=== PATIENT | male | born 1970 | race Caucasian/White ===

== ENCOUNTER → 2017-08-10 | Outpatient (CLI) | payer MEDICARE, MEDICAID ==
[~2017-08-10] MED LIST: BACTRIM DS 8001 TA1 PO; IBUPROFEN800 MG PO
[2017-08-10 18:54] LABS: AMPHETAMINES/METAMPHETAMINES NEGATIVE ng/mL (<1000)
== END ==
LOC: LAB 16:23
PROVIDERS: Nurse Practitioner Family
DX: Z79.899 Other long term (current) drug therapy (principal)

== ENCOUNTER 2017-09-02 17:52 | Emergency (ER) | payer MEDICARE, MEDICAID ==
[~2017-09-02] VITALS: Ht 188 cm; Wt 149.7 kg
--- OUTSIDE RECORDS SUMMARY | 2017-09-02 18:39 | External Medical Summary Rpt | CCD ---
Author Author , BERNABE KIDD Address Unknown Phone [email or web address] Care Team Providers Care Diving Supervisor Name Role Phone NARCISO STUART Unavailable Unavailable [facility] Unavailable Unavailable INC, [facility] RENUSCH, RENUSCH Unavailable Unavailable Purpose Continuity of Care Document - 05-06-2017 through 2016 Problems Code Diagnosis DOS Provider Status L0231 CUTANEOUS 05-15-2017 [facility] INC L0291 CUTANEOUS 05-06-2017 [facility] ABSCESS [facility] UNSPECIFIED INC Procedures Procedure DOS Code Location Performer Comment HOSPITAL G0463 MAR[facility] ALICIA OUTPATIEN 7 [facility] T CLIN INC INC VISIT ASSESS & MGMT PT HOSPITAL G0463 MAR[facility] ALICIA OUTPATIEN 7 [facility] INC INC VISIT ASSESS & MGMT PT HOSPITAL G0463 MARAL ALICIA OUTPATIEN 7 [facility] T CLIN INC INC VISIT ASSESS & MGMT PT CUL BACT 04767 MARAL ALICIA XCPT 7 [facility] URINE INC INC BLOOD/STO OL AEROBIC ISOL CUL BACT 21121 MARAL ALICIA AEROBIC 7 [facility] ADDL INC INC METHS DEFINITIV E EA ISOL INCISION 01592 MARAL MARAL & 7 [facility] DRAINAGE INC INC ABSCESS SIMPLE/SI NGLE INCISION 05529 MARTIR RENUSCH & 7 [facility] ABSCESS COMPLICAT ED/MULTIP LE SUSCEPTIB 12191 MARAL MARAL LTY STDY 7 [facility] ANTIMICRB INC INC IAL MICRO/AGA R DILUTJ BLOOD 03565 MARAL MARAL COUNT 7 [facility] COMPLETE INC INC AUTO&AUTO DIFRNTL WBC Encounters Encounter Start End Date Code Location Performer Type Date HOSPITAL [facility] - 7 7 [facility] OUTPATIEN INC T OFFICE [address]843 [facility] PHYS[facility] T VISIT GROUP 15 MINUTES [facility] MARAL - 7 7 [facility] 7 7 [facility] [address] MARTIR GILES 7 7 PHYSICIAN MICHAEL S, [facility] T VISIT HIGH/URGE NT SEVERITY [facility] MARAL - 7 7 [facility] DONAHUE 7 7 [facility] INC
--- OUTSIDE RECORDS SUMMARY | 2017-09-02 18:39 | External Medical Summary Rpt ---
Author Author BERNABE Sarabia, BERNABE [employer] Organization [employer] Address Unknown Phone Unavailable Results Drugs identified in Urine by Screen method Observa Value Referen Units Interpr Notes Date tion ce etation Range Positive urine drug screen samples are stored for 7 days. Contact the Lab if confirmation of positives is needed. Ampheta NEGATIV <1000 ng/mL No No Sep mine E informa informa 2017 [Presen tion in tion in 1:35 PM ce] in source source Urine data data by Screen method Barbitura <200 ng/mL No No Aug 10 vika informati informati 2017 1:35 [Mass/vol on in on in PM ume] in source source Urine by data data Screen method Benzodiaz 200 ng/mL ng/mL No No Aug 10 epines informati informati 2017 1:35 [Mass/vol on in on in PM ume] in source source Serum or data data Plasma by Screen method Cocaine <300 ng/g No No Sep [Mass/vol informati informati 2017 1:35 ume] in on in on in PM Unspecifi source source ed data data specimen Methadone <300 ng/mL No No Sep informati informati 2017 1:35 [Mass/vol on in on in PM ume] in source source Unspecifi data data ed specimen Opiates <300 ng/mL No No Sep [Mass/vol informati informati 2017 1:35 ume] in on in on in PM Unspecifi source source ed data data specimen Phencycli <25 ng/mL No No Sep 26 dine informati informati 2017 1:35 [Mass/vol on in on in PM ume] in source source Unspecifi data data ed specimen 11-Hydr NEGATIV <50 ng/mL No No Sep 26 oxy E informa informa 2017 delta-9 tion in tion in 1:35 PM source source tetrahy data data drocann abinol [Presen ce] in Unspeci fied specime n CBC W Auto Differential panel in Blood Observa Value Referen Units Interpr Notes Date tion ce etation Range Basophils 0 - 0.2 K/MM3 Normal No May 06 informati 2016 2:40 [#/volume on in PM ] in source Blood by data Automated count Basophils 0.1 - 2.0 % Normal No May 06 /100 informati 2016 2:40 leukocyte on in PM s in source Blood by data Automated count Eosinophi 0.0 - 0.4 K/mm3 Normal No May 06 ls informati 2016 2:40 [#/volume on in PM ] in source Blood by data Automated count Eosinophi 0.1 - % Normal No May 06 ls/100 12.0 informati 2016 2:40 leukocyte on in PM s in source Blood by data Automated count Granulocy 1.3 - 8.0 K/mm3 Normal No May 06 vika informati 2016 2:40 [#/volume on in PM ] in source Blood by data Automated count Granulocy 37.0 - % Normal No May 06 vika/100 80.0 informati 2016 2:40 leukocyte on in PM s in source Blood by data Automated count Hematocri 42.0 - % Normal No May 06 t [Volume 52.0 informati 2016 2:40 on in PM Fraction] source of Blood data Hemoglobi 14.1 - g/dL Normal No May 06 n 18.0 informati 2016 2:40 [Mass/vol on in PM ume] in source Blood data Lymphocyt 0.7 - 4.5 K/mm3 Normal No May 06 es informati 2016 2:40 [#/volume on in PM ] in source Unspecifi data ed specimen by Automated count Lymphocyt 10 - 50 % Normal No May 06 es informati 2016 2:40 [#/volume on in PM ] in source Unspecifi data ed specimen by Automated count Erythrocy 27 - 31.2 pg Normal No May 06 te mean informati 2016 2:40 corpuscul on in PM ar source hemoglobi data n [Entitic mass] Erythrocy 31.8 - g/dl Normal No May 06 te mean 35.4 informati 2016 2:40 corpuscul on in PM ar source hemoglobi data n concentra tion [Mass/vol ume] by Automated count Erythrocy 82.2 - fl Normal No May 06 te mean 97.8 informati 2016 2:40 corpuscul on in PM ar volume source [Entitic data volume] by Automated count Monocytes 0.1 - 1.0 K/mm3 Normal No May 06 informati 2016 2:40 [#/volume on in PM ] in source Blood by data Automated count Monocytes 1.7 - 9.3 % Normal No Apr 22 /100 informati 2016 2:40 leukocyte on in PM s in source Blood by data Automated count Platelet 7.4 - fl Normal No May 06 mean 10.4 informati 2016 2:40 volume on in PM [Entitic source volume] data in Blood by Automated count Platelets 142 - 424 K/mm3 Normal No May 06 informati 2016 2:40 [#/volume on in PM ] in source Blood data Erythrocy 4.6 - 6.2 M/mm3 Normal No May 06 vika informati 2016 2:40 [#/volume on in PM ] in source Amniotic data fluid Erythrocy 11.5 - % Normal No May 06 te 17.5 informati 2016 2:40 distribut on in PM ion width source [Entitic data volume] by Automated count Leukocyte 4.8 - K/MM3 Normal No May 06 s 10.8 informati 2016 2:40 [#/volume on in PM ] in source Blood data Comprehensive metabolic 2000 panel in Serum or Plasma Observa Value Referen Units Interpr Notes Date tion ce etation Range Albumin/G 1.1 - 1.8 No Low No May 03 lobulin informati informati 2016 2:54 [Mass on in on in PM ratio] in source source Serum or data data Plasma Albumin 3.4 - 5.0 gm/dL Normal No May 03 [Mass/vol informati 2016 2:54 ume] in on in PM Serum or source Plasma data Alkaline 46 - 116 U/L Normal No May 03 phosphata informati 2016 2:54 se on in PM [Enzymati source c data activity/ volume] in Serum or Plasma Bilirubin 0.2 - 1.0 mg/dL Normal No May 03 .total informati 2016 2:54 [Mass/vol on in PM ume] in source Serum or data Plasma Urea 7 - 18 mg/dL Normal No May 03 nitrogen informati 2016 2:54 [Mass/vol on in PM ume] in source Serum or data Plasma Calcium 8.5 - mg/dL Normal No May 03 [Mass/vol 10.1 informati 2016 2:54 ume] in on in PM Serum or source Plasma data Chloride 98 - 107 mmoL/L Normal No May 03 [Moles/vo informati 2016 2:54 lume] in on in PM Serum or source Plasma data Carbon 21.0 - mmoL/L Normal No May 03 dioxide, 32.0 informati 2016 2:54 total on in PM [Moles/vo source lume] in data Serum or Plasma Creatinin 0.70 - mg/dL Low No May 03 e 1.30 informati 2016 2:54 [Mass/vol on in PM ume] in source Serum or data Plasma Estimated >60 ML/MIN No REFERENCE May 03 informati RANGE: 2017 2:54 glomerula on in >60 PM r source ML/MIN/1. filtratio data 73 SQUARE n rate METERSIf (GF this patient is -A merican, then multiply theresult by 1.210. Globulin 1.3 - 3.2 gm/dL High No May 03 [Mass/vol informati 2016 2:54 ume] in on in PM Serum source data Glucose 74 - 106 mg/dL High No May 03 [Mass/vol informati 2016 2:54 ume] in on in PM Serum or source Plasma data Potassium 3.5 - 5.1 mmoL/L Normal No May 03 inform2016 2:54 [Moles/vo on in PM lume] in source Serum or data Plasma Sodium 136 - 145 mmoL/L Normal No May 03 [Moles/vo informati 2016 2:54 lume] in on in PM Serum or source Plasma data Aspartate 15 - 37 U/L Normal No May 03 inform2016 2:54 aminotran on in PM sferase source [Enzymati data c activity/ volume] in Serum or Plasma Alanine 12 - 78 U/L Normal No May 03 aminotran informati 2016 2:54 sferase on in PM [Enzymati source c data activity/ volume] in Serum or Plasma Protein 6.4 - 8.2 gm/dL Normal No May 03 [Mass/vol informati 2016 2:54 ume] in on in PM Serum or source Plasma data Thyroxine (T4) free [Mass/volume] in Serum or Plasma Observa Value Referen Units Interpr Notes Date tion ce etation Range Thyroxine 0.76 - ng/dL Normal No May 03 (T4) 1.46 informati 2016 2:54 free on in PM [Mass/vol source ume] in data Serum or Plasma Lipid 1996 panel in Serum or Plasma Observa Value Referen Units Interpr Notes Date tion ce etation Range Cholester < 200 mg/dL High No May 03 ol inform2016 2:54 [Moles/vo on in PM lume] in source Unspecifi data ed specimen Cholester 40 - 60 MG/DL Low No May 03 ol in HDL 2016 2:54 on in PM [Mass/vol source ume] in data Serum or Plasma Triglycer 30 - 200 mg/dL High IF May 03 lamont TRIGLYCER 2016 2:54 [Moles/vo LAMONT VALUE PM lume] in EXCEEDS Serum or 400 Plasma MG/DL,THE VLDL/LDL VALUES HAVE NO CLINICAL SIGNIFICA NCE.THE CALCULATI ONS ARE ACCURATE FOR SPECIMENS INWHICH THE TRIGLYCER LAMONT CONCENTRA TION IS NO MORETHAN 400 MG/DL AND WHICH ARE NOT FROM PERSONS WHOHAVE TYPE III HYPERLIPO PROTEINEM IA. Thyrotropin [Units/volume] in Serum or Plasma Observa Value Referen Units Interpr Notes Date tion ce etation Range Thyrotrop 0.358 - uIU/ml Normal No May 03 in 3.740 2016 2:54 [Units/vo on in PM lume] in source Serum or data Plasma Hemoglobin A1c in Blood Observa Value Referen Units Interpr Notes Date tion ce etation Range Hemoglo 10.4 0.0 - % High < 6% May 03 bin A1c 7.0 NON-CHAENL 2017 in BETIC 2:54 PM Blood LEVEL< 7% CONTROL LED DIABETI C LEVEL> 8% POORLY CONTROL LED DIABETI C LEVEL CBC W Auto Differential panel in Blood Observa Value Referen Units Interpr Notes ti ce etation Range Basophils 0 - 0.2 K/MM3 Normal No May 032016 2:54 [#/volume on in PM ] in source Blood by data Automated count Basophils 0.1 - 2.0 % Normal No May 03 /100 inform2016 2:54 leukocyte on in PM s in source Blood by data Automated count Eosinophi 0.0 - 0.4 K/mm3 Normal No May 03 ls 2016 2:54 [#/volume on in PM ] in source Blood by data Automated count Eosinophi 0.1 - % Normal No May 03 ls/100 12.0 2016 2:54 leukocyte on in PM s in source Blood by data Automated count Granulocy 1.3 - 8.0 K/mm3 Normal No May 03 vika informati 2017 2:54 [#/volume on in PM ] in source Blood by data Automated count Granulocy 37.0 - % Normal No May 03 vika/100 80.0 informati 2017 2:54 leukocyte on in PM s in source Blood by data Automated count Hematocri 42.0 - % Normal No May 03 t [Volume 52.0 informati 2017 2:54 on in PM Fraction] source of Blood data Hemoglobi 14.1 - g/dL Normal No May 03 n 18.0 informati 2017 2:54 [Mass/vol on in PM ume] in source Blood data Lymphocyt 0.7 - 4.5 K/mm3 Normal No May 03 es informati 2017 2:54 [#/volume on in PM ] in source Unspecifi data ed specimen by Automated count Lymphocyt 10 - 50 % Normal No May 03 es informati 2016 2:54 [#/volume on in PM ] in source Unspecifi data ed specimen by Automated count Erythrocy 27 - 31.2 pg Normal No May 03 te mean informati 2016 2:54 corpuscul on in PM ar source hemoglobi data n [Entitic mass] Erythrocy 31.8 - g/dl Normal No May 03 te mean 35.4 informati 2017 2:54 corpuscul on in PM ar source hemoglobi data n concentra tion [Mass/vol ume] by Automated count Erythrocy 82.2 - fl Normal No May 03 te mean 97.8 informati 2016 2:54 corpuscul on in PM ar volume source [Entitic data volume] by Automated count Monocytes 0.1 - 1.0 K/mm3 Normal No May 03 informati 2017 2:54 [#/volume on in PM ] in source Blood by data Automated count Monocytes 1.7 - 9.3 % Normal No May 03 /100 informati 2017 2:54 leukocyte on in PM s in source Blood by data Automated count Platelet 7.4 - fl Low No May 03 mean 10.4 informati 2017 2:54 volume on in PM [Entitic source volume] data in Blood by Automated count Platelets 142 - 424 K/mm3 Normal No May 03 informati 2017 2:54 [#/volume on in PM ] in source Blood data Erythrocy 4.6 - 6.2 M/mm3 Normal No May 03 vika informati 2017 2:54 [#/volume on in PM ] in source Amniotic data fluid Erythrocy 11.5 - % Normal No May 03 te 17.5 informati 2017 2:54 distribut on in PM ion width source [Entitic data volume] by Automated count Leukocyte 4.8 - K/MM3 Normal No May 03 s 10.8 informati 2016 2:54 [#/volume on in PM ] in source Blood data
--- OUTSIDE RECORDS SUMMARY | 2017-09-02 18:39 | External Medical Summary Rpt ---
Author Author BERNABE Sarabia, BERNABE [employer] Organization [employer] Address Unknown Phone Unavailable [...] < 6% May 03 bin A1c 7.0 NON-CHANEL 2017 in BETIC 2:54 PM Blood LEVEL< [...]
--- OUTSIDE RECORDS SUMMARY | 2017-09-02 18:39 | External Medical Summary Rpt | CCD ---
Author Author , BERNABE KIDD Address Unknown Phone [email or web address] Care Team Providers Care Surg Nurse Name Role Phone LEONARDOCAITLYN NARCISO Unavailable Unavailable [facility] RENUSCH, RENUSCH Unavailable Unavailable Purpose Continuity of Care Document - 05-03-2017 through 2016 Problems Code Diagnosis DOS Provider Status E11.65 TYPE 2 07-09-2017 DIABETES MELLITUS WITH HYPERGLYCEM IA F33.9 MAJOR 07-09-2017 DEPRESSIVE DISORDER, RECURRENT, UNSPECIFIED Z87.891 PERSONAL 07-09-2017 HISTORY OF NICOTINE DEPENDENCE L0231 CUTANEOUS 05-15-2017 [facility] L0291 CUTANEOUS 05-06-2017 [facility] UNSPECIFIED INC D64.9 ANEMIA, UNSPECIFIED E11.9 TYPE 2 DIABETES MELLITUS WITHOUT COMPLICATIO NS F41.9 ANXIETY DISORDER, UNSPECIFIED L02.91 CUTANEOUS ABSCESS, UNSPECIFIED Z79.899 OTHER DIRECTOR LEARNING SERVICES (CURRENT) DRUG THERAPY Results Labs Lab Lab Date Result Refere Interp Status Commen Order Detail nces retati t Range on Drugs identified in Urine by Screen method (08-10-2017 13:35) Ampheta NEGATIV <1000 complet mine 017 E ed [Presen 13:35 ce] in Urine by Screen method 11-Hydr NEGATIV <50 complet oxy 017 E ed delta-9 13:35 tetrahy drocann abinol [Presen ce] in Unspeci fied specime n Hemoglobin A1c in Blood (05-03-2017 14:54) Hemoglo 10.4 % 0.0% High complet bin A1c 017 - ed in 14:54 7.0% Blood Procedures Procedure DOS Code Location Performer Comment HOSPITAL G0463 [facility] INC INC VISIT ASSESS & MGMT PT HOSPITAL G0463 [facility] [place] OUTPATIEN 7 [facility] CLIN INC INC VISIT ASSESS & MGMT PT HOSPITAL G0463 MARAL ALICIA OUTPATIEN 7 [facility] CL[facility] INC INC VISIT ASSESS & MGMT PT INCISION 74447 MARAL ALICIA & 7 [facility] DRAINAGE INC INC ABSCESS SIMPLE/SI NGLE INCISION 32690 MARTIR RENUSCH & 7 [facility] ABSCESS COMPLICAT ED/MULTIP LE SUSCEPTIB 21913 AMRAL ALICIA LTY STDY 7 [facility] ANTIMICRB INC INC IAL MICRO/AGA R DILUTJ CUL BACT 14752 MARAL ALICIA XCPT 7 [facility] URINE INC INC BLOOD/STO OL AEROBIC ISOL CUL BACT 16003 MARAL ALICIA AEROBIC 7 [facility] ADDL INC INC METHS DEFINITIV E EA ISOL BLOOD 33361 MARAL ALICIA COUNT 7 [facility] COMPLETE INC INC AUTO&AUTO DIFRNTL WBC Encounters Encounter Start End Date Code Location Performer Type Date [facility] MAR[facility] - 7 7 [facility] OFFICE [address] [facility] PHYSICIAN T VISIT GROUP 15 MINUTES [facility] MARAL - 7 7 [facility] T [facility] - 7 7 [facility] - 7 7 [facility] [address]35 MARAL 7 7 [facility] INC T VISIT HIGH/URGE NT SEVERITY HOSPITAL MARAL - OTHER 7 7 [facility] INC
--- OUTSIDE RECORDS SUMMARY | 2017-09-02 18:39 | External Medical Summary Rpt | CCD ---
Author Author , BERNABE KIDD Address Unknown Phone [email or web address] Care Team Providers Care Packing Room Inspector Name Role Phone NARCISO STUART Unavailable Unavailable [facility] Unavailable Unavailable INC, [facility] RENUSCH, RENUSCH Unavailable Unavailable Purpose Continuity of Care Document - 05-06-2017 through 2016 Problems Code Diagnosis DOS Provider Status L0231 CUTANEOUS 05-15-2017 [facility] INC L0291 CUTANEOUS 05-06-2017 MARAL ABSCESS [facility] UNSPECIFIED INC Procedures Procedure DOS Code Location Performer Comment HOSPITAL G0463 MAR[facility] ALICIA OUTPATIEN 7 [facility]OS[facility] T CLIN INC INC VISIT ASSESS & MGMT PT HOSPITAL G0463 MAR[facility] [place] OUTPATIEN 7 [facility] T CLIN INC INC VISIT ASSESS & MGMT PT [facility]OSPITAL G0463 MAR[facility] ALICIA OUTPATIEN [address] [facility]OS[facility] T CLIN INC INC VISIT ASSESS & MGMT PT CUL BACT 51079 MARAL ALICIA XCPT [address] [facility] URINE INC INC BLOOD/STO OL AEROBIC ISOL CUL BACT 66503 MARAL ALICIA AEROBIC [address] [facility] ADDL INC INC METHS DEFINITIV E EA ISOL INCISION 41162 MARAL MARAL & [address] [facility] DRAINAGE INC INC ABSCESS SIMPLE/SI NGLE INCISION 30952 MARTIR RENUSCH & 7 [facility]YSICIAN [facility] ABSCESS COMPLICAT ED/MULTIP LE SUSCEPTIB 15525 MARAL MARAL LTY STDY [address] [facility] ANTIMICRB INC INC IAL MICRO/AGA R DILUTJ BLOOD 49024 MARAL MARAL COUNT [address] [facility] COMPLETE INC INC AUTO&AUTO DIFRNTL WBC Encounters Encounter Start End Date Code Location Performer Type Date HOSPITAL MARAL - 7 7 [facility] OUTPATIEN INC T OFFICE [address]40 [facility] 7 PHYSICIAN T VISIT GROUP 15 MINUTES [facility] MARAL - 7 7 [facility] 7 7 [facility] [address] MARTIR GILES 7 7 PHYSICIAN MICHAEL S, [facility] T VISIT HIGH/URGE NT SEVERITY [facility] MARAL - 7 7 [facility] DON[facility]UE 7 7 [facility] INC
--- OUTSIDE RECORDS SUMMARY | 2017-09-02 18:39 | External Medical Summary Rpt | CCD ---
Demographics Preferred Language Guamanian Marital Status Unknown Protestant Affiliation Unknown Race Unknown Ethnic Group Unknown Author Author , BERNABE KIDD Address Unknown Phone Immunization No patient found.
--- OUTSIDE RECORDS SUMMARY | 2017-09-02 18:39 | External Medical Summary Rpt | CCD ---
Author Author , BERNABE KIDD Address Unknown Phone [email or web address] Care Team Providers Care Repeat Photocomposing Machine Operator Name Role Phone LEONARDOCAITLYN NARCISO Unavailable Unavailable [...] UNSPECIFIED L02.91 CUTANEOUS ABSCESS, UNSPECIFIED Z79.899 OTHER DOCTOR PODIATRIC MEDICINE (CURRENT) DRUG THERAPY Results Labs Lab Lab [...] PT HOSPITAL G0463 MAR[facility] ALICIA OUTPATIEN 7 [facility] CL[facility] INC INC VISIT ASSESS & MGMT PT INCISION 45911 MARAL ALICIA & [address] [facility] DRAINAGE INC INC ABSCESS SIMPLE/SI NGLE INCISION 87180 MARTIR RENUSCH & 7 PHYSICIAN DRAINAGE S, PLLC ABSCESS COMPLICAT ED/MULTIP LE SUSCEPTIB 67491 MAR[facility] ALICIA LTY STDY [address] [facility]OSP ANTIMICRB INC INC IAL MICRO/AGA R DILUTJ CUL BACT 92106 [address] AL[address] XCPT [address] [facility] URINE INC INC BLOOD/STO OL AEROBIC ISOL CUL BACT 78089 [facility] AL[address] AEROBIC [address] [facility] ADDL INC INC METHS DEFINITIV E EA ISOL BLOOD 69546 MARAL ALICIA COUNT [address] [facility] COMPLETE INC INC AUTO&AUTO DIFRNTL WBC Encounters Encounter Start End Date Code Location Performer Type Date [facility] MARAL - 7 7 [facility] [address] [facility] 7 PHYSICIAN T VISIT GROUP 15 MINUTES [facility] MARAL - 7 7 [facility] T [facility] MARAL - 7 7 [facility] 7 7 [facility] [address] MARAL 7 7 [facility] INC T VISIT HIGH/URGE NT SEVERITY HOSPITAL MARAL - OTHER 7 7 [facility]
--- OUTSIDE RECORDS SUMMARY | 2017-09-02 18:39 | External Medical Summary Rpt | CCD ---
Demographics Preferred Language Moroccan Marital Status Unknown Sikh Affiliation Unknown Race Unknown Ethnic Group Unknown Author Author , BERNABE KIDD Address Unknown Phone Immunization No patient found.
[2017-09-02] MEDS ORDERED: SIMVASTATIN10 MG PO (18:47)
[2017-09-02] MEDS ORDERED: WELLBUTRIN SR100 MG PO (18:47)
[2017-09-02] MEDS ORDERED: JARDIANCE10 MG PO (18:47)
[2017-09-02] MEDS ORDERED: FUROSEMIDE 20MG20 MG FT (18:48)
--- NOTE | 2017-09-02 18:54 | Urgent Treatment Center Report ---
History of Present Issue Date/Time Seen by Provider 09/02/17 1850 Visit Reason Pt arrived:Walked Presenting Problem:C/O RIGHT HIP PAIN. PT STATES HES HAD HIP PAIN SINCE 2009. PT STATED HE FELL AT HOME YESTERDAY Location if Accident:Home Onset of symptoms date/time:/ or onset unknown for:MEDICAL HX UNKNOWN Have you (or family members/close friends) recently traveled outside the [place]? N If Yes, where/when: Have you had exposure to infectious disease within the past month? TB? Other? Specify: Patient states that he has chronic hip pain since accident many years ago. State that his right hip has beenhurting more recenty and accidently fell yesterday at home. State that he felt like he needed to come in and get a little something to help him with the pain ALLERGIES Coded Allergies: acetaminophen (From VICODIN) (09/02/17) hydrocodone (From VICODIN) (09/02/17) methadone (09/02/17) morphine (09/02/17) Home Medications Reported Medications Empagliflozin (Jardiance) 10 MG PO DAILY BUPROPION HCL SR (Wellbutrin SR 100MG) 100 MG PO BID Simvastatin 10 MG PO DAILY Furosemide (Furosemide) 20 MG FT DAILY History Medical History General CAD? No Angina: No MS: No Hypertension? No Hyperlipidemia? No CHF? No DVT? No PE? No COPD? No Asthma? No Anemia? No GERD? No Gastric ulcers? No GI Bleed? No Hernia? No Thyroid Problems? No Hypothyroidism? No CVA? No Seizures? No Diabetes? Yes Insulin Dependent: No Insulin Pump: No Home FSBS? No Renal Insuffiency? No UTI? No Stones? No BPH? No GB Disease: No Nephritic Syndrome? No Asplenia? No Hepatitis? No Sickle Cell Disease? No Arthritis? No Migraines? No Cataracts? No Glaucoma? No MRSA? No HIV? No TB? No Anxiety? No Depression? No Cancer? No More? No Immunization HX DT/Tetanus 2004 Surgical Hx Previous Surgery?Y POLYP REMOVED FROM [facility] Hernia Repair RIGHT ARM Social History Smoking Hx Smoker: Current Every Day Smoker Tobacco: No Packs/day 1 1/2 - 2 Packs Alcohol Alcohol: No Review of Systems All Other Systems Reviewed and Negative Comment Chronic right hip pain, fell yesterday at home Physical Exam Vital Signs Vital Signs Date Time Temp Pulse Resp B/P Pulse O2 O2 Flow FiO2 Ox Delivery Rate 09/02 1844 98.4 98 20 132/85 98 General Appearance normal appearance, WD/WN, no apparent distress Respiratory Status Yes: trachea midline, chest symmetrical, non tender chest. No: respiratory distress. Cardiovascular normal exam, regular rate/rhythm, no peripheral edema Extremities Chronic right hip pain and fell yesterday at home, state that he has been having pain in the hip and came in to get a little medication to help with the pain Neurologic alert, normal exam, oriented x 3 Medical Decision Making LABS/Meds/Orders Pt receiving controlled substance in ED? No Results/Orders Current Medication Orders Sig/Enriqueta Start time Last Medication Dose Route Stop Time Status Admin Ketorolac 60 MG ONCE ONE 09/02 1930 AC Tromethamine IM 09/02 1931 Ketorolac 0 .STK-MED ONE 09/02 1929 DC Tromethamine .ROUTE Orders Procedure Date/time Status HIP RT 2-3V W/PELVIS IF PERFOR 09/02 1844 Active XRAY/CT/US XRAY/CT/US XRAY hip XR interpretation by reviewed by me Xray Results no fracture seen Comment Discussed with Dr Morataya Departure Departure Time of Disposition 1929 Disposition DC Home or Self Care(routine) Clinical Impression Primary Impression: Chronic hip pain Qualifiers: Laterality: right Qualified Code: M25.551 - Pain in right hip Condition STABLE Referrals Andrew Mcguire APRN (Family): [facility] Follow up for further treatment and evaluation Patient Instructions DI for Hip Pain Additional Instructions Follow up with family doctor for further treatment Return if needed If pain persists or worsens see family doctor or go to ER for further treatment Discharge Counseling Counseled pt/family regarding diagnosis, test results, medications/RX, home care, follow up needs at 1933
[2017-09-02 19:39] VITALS: BP 132/85
--- NOTE | 2017-09-02 22:17 | RADIOLOGY REPORT PS360 ---
HIP RT 2-3V W/PELVIS IF PERFOR HISTORY: Pain following injury FELL ORDERING PHYSICIAN: HELENE MATSON APRN PATIENT AGE: 46 years COMPARISON: None FINDINGS: No acute fracture or dislocation is evident. There is small lobulation along the junction of the femoral head and neck on the right which may represent a cam deformity and can be seen with femoral acetabular impingement. There is also some sclerosis of the femoral head with some subchondral lucency. Avascular sclerosis is considered. MRI may be of further value. The left hip has an unremarkable appearance. IMPRESSION: 1. No acute fracture. 2. Cam deformity of the femoral head which may be seen with femoral acetabular impingement. 3. Mixed sclerosis and lucency of the femoral head which may be seen with avascular crisis. MRI may be of further value.
== END 2017-09-02 19:40 | disposition home or self-care (01) ==
LOC: ER 17:52 → UTC 18:16
DX: M25.551 Pain in right hip (principal); G89.29 Other chronic pain; F17.210 Nicotine dependence, cigarettes, uncomplicated; Z79.899 Other long term (current) drug therapy

== ENCOUNTER → 2017-09-07 | Outpatient (CLI) | payer MEDICARE, MEDICAID ==
[~2017-09-07] MED LIST changes: +FUROSEMIDE 20MG20 MG FT; +JARDIANCE10 MG PO; +SIMVASTATIN10 MG PO; +WELLBUTRIN SR100 MG PO
--- NOTE | 2017-09-10 09:07 | RADIOLOGY REPORT PS360 ---
MRI-LOW EXT ANY JOINT W/O-RT HISTORY: Right hip pain, abnormal radiograph, avascular crisis evaluation ACUTE RIGHT HIP PAIN ORDERING PHYSICIAN: Rashad Roberson MD PATIENT AGE: 46 years COMPARISON: X-ray 09/02/2017 TECHNIQUE: Standard multiplanar multiecho sequences are performed without contrast. FINDINGS: Patient apparently has had prior surgery of the right hip with reported core decompression. There are no previous MRIs available for review. There is a small linear oblique area of decreased T1 and T2 signal within the right femoral neck extending into the subtrochanteric region and may be related to the previous core decompression procedure. There is a zone of abnormal signal intensity involving the subchondral region of the right femoral head superiorly hypointense on T1 with mixed hypo and and hyperintensity on T2 consistent with avascular necrosis of the right femoral head. Consistent with FICAT stage II. No cortical collapse. The left hip has an unremarkable appearance. IMPRESSION: 1. Avascular necrosis of the right hip, FICAT stage II. 2. Postsurgical changes from prior core decompressionof the right hip
== END ==
LOC: RAD 15:20
DX: M25.551 Pain in right hip (principal)

== ENCOUNTER → 2017-09-22 | Outpatient (CLI) | payer MEDICARE, MEDICAID ==
--- NOTE | 2017-09-23 15:17 | RADIOLOGY REPORT PS360 ---
History and Indications: Obesity, diabetes, hyperlipidemia, family history and shortness of breath Procedure: Patient received a 0.4 mg of Lexiscan, resting heart rate was 69 bpm, resting blood pressure 130/66, with Lexiscan maximum heart rate achieved was 97 bpm is less than 85% of the maximum predicted heart rate and a blood pressure was 121/65. With Lexiscan patient complained of mild chest heaviness Electrocardiogram: Resting electrocardiogram showed sinus rhythm, with Lexiscan nonspecific T wave changes seen, less than 1.[address] segment depression noted from the baseline EKG. The EKG portion of the Lexiscan Myoview is nondiagnostic. Cardiac stress and resting SPECT images: Cardiac stress and rest SPECT images were obtained using technetium 99 Myoview 10.6 mCi at rest and 31.5 mCi at stress, gated SPECT further analysis of segmental wall motion and calculation of the ejection fraction also done. Cardiac stress and rest images show a fixed defect in the inferior wall with normal contractility in the gated SPECT is likely secondary to soft tissue attenuation, no reversible ischemia seen. Computer derived ejection fraction is 46% with no obvious regional wall motion abnormality, right ventricle is mildly enlarged with normal contractility. Conclusion: 1. The EKG portion of the Lexiscan Myoview is nondiagnostic. 2. Scintigraphic evidence of fixed defect in the renal wall with normal contractility in the gated SPECT is likely secondary to soft tissue attenuation, no reversible ischemia seen, computer derived ejection fraction is 46% with no obvious regional wall motion abnormality, right ventricle is mildly enlarged with normal contractility.
--- NOTE | 2017-09-23 16:37 | RADIOLOGY REPORT PS360 ---
PROCEDURE: 2-D M-mode and color Doppler study INDICATIONS FOR THE TEST: Chest pain COPD Heart Murmur Tobacco Smoking Palpitations Fatigue Syncope Edema HypertensionXDiabetes MellitusX Rheumatic Fever SOB DOEXObesityXHyperlipidemiaX Family History HDX Additional History PRE OP EVAL PATIENT INFORMATION HEIGHT: 74 WEIGHT:330 GENDER: Male B/P:130/66 2-D/M-MODE INTERPRETATION: 2-D MEASUREMENTS OBSERVED VALUES IN CMS Right Ventricular Dimension (RVDd) 2.3 Interventricular Septum (Thickness)(IVsd) 1.2 Left Ventricular Internal Dimensions(LVIDd) 5.0 Left Ventricular Posterior Wall (Thickness)(LVPWd) 1.2 Aortic Root 3.1 Aortic Cusp Separation 2.4 Left Atrial Dimensions (LAD) 4.0 2D 1. Technically difficult study because of the patient's factor and poor acoustic windows, right-sided chambers are not well visualized. 2. The left atrium is qualitatively mildly enlarged, left ventricle is normal size, there is mild concentric left ventricular hypertrophy present, visually estimated ejection fraction 55% with no obvious regional wall motion abnormality. 3. The right-sided chambers are not well visualized. 4. The aortic valve is minimally thickened and fibrosed. 5. The mitral and tricuspid valve are grossly normal. 6. The pulmonic valve is poorly visualized. 7. No significant pericardial effusion noted. DOPPLER INTERROGATION: Doppler interrogation of the aortic, mitral and tricuspid valvular presence of mild mitral and tricuspid regurgitation, tricuspid and jet velocity insufficient for calculation of the right ventricular systolic pressure, diastolic parameters are inconclusive. CONCLUSION: 1. Technically difficult study because of the patient's factor and poor acoustic windows 2. The right-sided chambers are not well visualized 3. Normal left ventricle size, mild concentric left ventricular hypertrophy, visually estimated ejection fraction 55% no obvious regional wall motion abnormality, diastolic parameters are inconclusive. 4. Mild mitral and tricuspid regurgitation. 5. No significant pericardial effusion noted.
== END ==
LOC: RAD 07:26
DX: R06.09 Other forms of dyspnea (principal); Z01.818 Encounter for other preprocedural examination
CPT/HCPCS: A9502; J2785

== ENCOUNTER → 2017-10-01 | Outpatient (CLI) | payer MEDICARE, MEDICAID | LOC: LAB 15:56 | DX: L03.011 Cellulitis of right finger (principal) ==

== ENCOUNTER → 2017-10-29 | Outpatient (CLI) | payer MEDICARE, MEDICAID ==
[2017-10-29 18:27] LABS: HEMOGLOBIN 15.5 g/dL (14.1-18.0); LYMPH # 1.8 K/mm3 (0.7-4.5); LYMPH % 26.9 % (10-50)
[2017-10-29 19:00] LABS: BUN 12 mg/dL (7-18)
[2017-10-29 19:07] LABS: GFR (ESTIMATED) 91 ML/MIN (>60)
== END ==
LOC: LAB 17:36
PROVIDERS: Nurse Practitioner Family
DX: E11.9 Type 2 diabetes mellitus without complications (principal)